=== PATIENT | male | born 1935 | race Caucasian/White ===

== ENCOUNTER 2019-11-06 18:48 | Inpatient (IN) | payer MEDICARE, OTHER ==
[~2019-11-06] VITALS: Ht 172.7 cm; Wt 95.3 kg
--- OUTSIDE RECORDS SUMMARY | 2019-11-06 18:50 | XMS REPORT ---
Author Author [facility] Address Unknown Phone Unavailable Care Team Providers Care Senior Research Fellow Name Role Phone SELENE SCHWARZ Unavailable Unavailable LYNNE ESTRADA Unavailable Unavailable Problems This patient has no known problems. Allergies, Adverse Reactions, Alerts This patient has no known allergies or adverse reactions. Medications This patient has no known medications. Results Test Description Test Time Test Comments Text Results Atomic Results Result Comments TISSUE EXAM 2019-10-04 08:56:00 Surgical Pathology Report Case: [id number] Authorizing Provider: Erasto Schwarz, Collected: 09/28/2019 0810 Ordering Location: [facility] OR Received: 09/28/2019 [facility] Perioperative Services Pathologist: Betito Aldridge MD Specimen: Condy le,Left Knee CONDYLES, LEFT KNEE, ARTHROPLASTY: - DEGENERATIVE CHANGES CONSISTENT WITH OSTEOARTHRITIS Signing Pathologist Direct Phone Line: [phone] signed by Betito Aldridge MD on 10/04/2019 at 8:56 [id number] diagnosis: Primary osteoarthritis of both kneesA. Condyle, left kneeReceived in formalin labeled with the patient's name, accession number and "condyle, left knee" are multiple mixon-yellow trabeculated bone fragments that range from 2.5 to 8.3 cm in greatest dimension. The articular surface is s mooth to finely granular and displays two areas of eburnation that range from 1.0 to 2.0 cm in greatest dimension, as well as multiple peripheral osteophytes that measure up to 1.4 cm in greatest dimension. The cut surface is mixon-yellow, trabeculated and firm with cortical bone ranging from absent to 0.3 cm thick. Medical Educator sections are submitted as A1-A3 following decalcification. PA/pl Performed. POCT-GLUCOSE METER 2019-09-29 11:56:00 POC-GLUCOSE METER (Activehours) (test fmuc=3614) 145 mg/dL 70-110 : TESTED AT [address] [address]: Nurse/Physical Therapist Aide AR=[id number] for Shabnam Frausto POCT-GLUCOSE [id number] 07:31:00* Test Item Value Reference Range Comments POC-GLUCOSE METER (BEAKER) (test yzyz=3918) 143 mg/dL 70-110 : TESTED AT [address] [address]: Nurse/Physical Therapist Aide SW=[id number] for Shabnam Frausto BASIC METABOLIC [id number] 05:54:00* Test Item Value Reference Range Comments SODIUM (BEAKER) (test ifmg=163) 141 meq/L 136-145 POTASSIUM (BEAKER) (test etmd=285) 4.7 meq/L 3.5-5.1 Specimen slightly hemolyzed CHLORIDE (BEAKER) (test esrj=910) 111 meq/L 98-107 CO2 (BEAKER) (test vbgk=397) 22 meq/L 22-29 BLOOD UREA NITROGEN (BEAKER) (test gkpv=116) 28 mg/dL 7-21 CREATININE (BEAKER) (test icdn=228) 1.15 mg/dL 0.57-1.25 Specimen slightly hemolyzed GLUCOSE RANDOM (BEAKER) (test knah=763) 146 mg/dL 70-105 CALCIUM (BEAKER) (test daww=272) 8.8 mg/dL 8.4-10.2 EGFR (BEAKER) (test oefg=3456) 61 mL/min/1.73 sq m ESTIMATED GFR IS NOT ACCURATE CREATININE CLEARANCE IN PREDICTING GLOMERULAR FILTRATION RATE. ESTIMATED GFR IS NOT APPLICABLE FOR DIALYSIS PATIENTS. HEMOGLOBIN AND [id number] 05:52:00* Test Item Value Reference Range Comments HEMOGLOBIN (BEAKER) (test ybmx=158) 8.5 GM/DL 13.7-17.5 HEMATOCRIT (BEAKER) (test ddgx=851) 26.9 % 40.1-51.0 POCT-GLUCOSE [id number] 21:12:00* Test Item Value Reference Range Comments POC-GLUCOSE METER (BEAKER) (test kjio=5757) 153 mg/dL 70-110 : TESTED AT [address] [address]: Nurse/Physical Therapist Aide IL=[id number] for TOYN BLAKE POCT-GLUCOSE [id number] 17:47:00* Test Item Value Reference Range Comments POC-GLUCOSE METER (BEAKER) (test bevz=1006) 218 mg/dL 70-110 : TESTED AT [address] [address]: Nurse/Physical Therapist Aide FK=[id number] for EMILY MCGOWAN POCT-GLUCOSE [id number] 11:21:00* Test Item Value Reference Range Comments POC-GLUCOSE METER (BEAKER) (test syks=2912) 142 mg/dL 70-110 : TESTED AT [address] [address]: Nurse/Physical Therapist Aide BN=[id number] for RAFAEL CARMEN POCT-GLUCOSE [id number] 07:38:00* Test Item Value Reference Range Comments POC-GLUCOSE METER (BEAKER) (test dffg=1288) 88 mg/dL 70-110 : TESTED AT [place] [id number]: Nurse/Physical Therapist Aide EO=[id number] for ADELINA PALM TISSUE [id number] 10:10:00Surgical Pathology Report Case: [id number] Authorizing Provider: Jamarcus Estrada MD Collected: 10/29/2017 1316 Ordering Location: [facility] - Perioperative Received: 10/29/2017 1414 Services Pathologist: Per Pacheco MD Specimen: Stomach STOMACH, SLEEVE GASTRECTOMY- STOMACH- NO DYSPLASIA OR MALIGNANCY IDENTIFIED Signing Pathologist Direct Phone Line: [phone] signed by Per Pacheco MD on 11/02/2017 at 10:10 [id number] obesity. Procedure: laparoscopic longitudinal sleeve gastrectomyStomach The instrument, paperwork, container and cassette all read [id number].Received in formalin labeled with the patient's name (Eliezer), and medical record number.Specimen A: Received in formalin labeled as "stomach" is a 26.5 x 8.0 x 4.0 cm segment of stomach. The serosal surface is olvera-mixon and smooth. There is staple line running along the long axis of the specimen. Opening the stomach reveals a rugae with the usual folding pattern. There is no discrete mass, ulcer or polyp noted. Two employer relations representative sections are submitted in A1 and A2. JF/pl POCT-GLUCOSE METER 2017-10-30 12:03:00* Test Item Value Reference Range Comments POC-GLUCOSE METER (BEAKER) (test okdx=8028) 122 mg/dL 70-110 TESTED AT [facility] [address] [facility] [address] [place], UGI, WITHOUT [id number] 08:55:00Gastrograffin only.Reason for exam:->to evaluate pouch, status post lapascopic sleeve gastrectome/lapacopic bandFINAL REPORT Technique: Limited UGI dated 10/30/2017 History: Evaluate pouch Comparison: None Impression:Total fluoro time is 0.3 minutes. Total number of images is 10. The patient ingested approximately 30 cc of gastr ografin without difficulty. Gastrografin flowed smoothly from the esophagus into the neostomach and into the duodenum. There is no evidence of contrast extravas ation or obstruction. Signed: Ada Botello MDReport Verified Date/Time: 10/30/2017 08:55:08 Reading Location: [facility] Radiology Reading Room Electronica lly signed by: ADA BOTELLO on 10/30/2017 08:55 AM BASIC METABOLIC [id number] 06:52:00* Test Item Value Reference Range Comments SODIUM (BEAKER) (test vysa=787) 141 meq/L 135-148 POTASSIUM (BEAKER) (test iynl=129) 5.1 meq/L 3.5-5.5 CHLORIDE (BEAKER) (test vktk=320) 112 meq/L 98-106 CO2 (BEAKER) (test vrtx=181) 20 meq/L 20-31 BLOOD UREA NITROGEN (BEAKER) (test flak=220) 38 mg/dL 10-26 CREATININE (BEAKER) (test trjl=788) 1.19 mg/dL 0.50-1.20 GLUCOSE RANDOM (BEAKER) (test ehuf=990) 110 mg/dL 70-110 CALCIUM (BEAKER) (test dzbs=563) 9.1 mg/dL 8.5-10.5 EGFR (BEAKER) (test odlu=4228) 59 mL/min/1.73 sq m ESTIMATED GFR IS NOT ACCURATE CREATININE CLEARANCE IN PREDICTING GLOMERULAR FILTRATION RATE. ESTIMATED GFR IS NOT APPLICABLE FOR DIALYSIS PATIENTS. CBC W/PLT COUNT & AUTO [id number] 06:13:00* Test Item Value Reference Range Comments WHITE BLOOD CELL COUNT (BEAKER) (test xdko=351) 10.7 K/ L 4.0-10.0 RED BLOOD CELL COUNT (BEAKER) (test vcxa=325) 3.36 M/ L 4.20-5.80 HEMOGLOBIN (BEAKER) (test snje=638) 11.1 GM/DL 13.0-16.8 HEMATOCRIT (BEAKER) (test izda=092) 33.6 % 40.0-50.0 MEAN CORPUSCULAR VOLUME (BEAKER) (test lutc=428) 100.2 fL 82.0-98.0 MEAN CORPUSCULAR HEMOGLOBIN (BEAKER) (test hfsp=661) 33.1 pg 27.0-33.0 MEAN CORPUSCULAR HEMOGLOBIN CONC (BEAKER) (test taqt=725) 33.0 GM/DL 32.0-36.0 RED CELL DISTRIBUTION WIDTH (BEAKER) (test hhzf=039) 14.9 % 12.0-15.0 PLATELET COUNT (BEAKER) (test izhs=908) 215 K/CU MM 150-430 MEAN PLATELET VOLUME (BEAKER) (test vvsd=553) 7.8 fL 6.5-10.5 NUCLEATED RED BLOOD CELLS (BEAKER) (test whcr=348) 0 /100 WBC 0-0 NEUTROPHILS RELATIVE PERCENT (BEAKER) (test lsnt=066) 74 % LYMPHOCYTES RELATIVE PERCENT (BEAKER) (test ijyx=107) 16 % MONOCYTES RELATIVE PERCENT (BEAKER) (test txqj=720) 9 % EOSINOPHILS RELATIVE PERCENT (BEAKER) (test lcts=623) 1 % BASOPHILS RELATIVE PERCENT (BEAKER) (test krel=122) 0 % NEUTROPHILS ABSOLUTE COUNT (BEAKER) (test iteg=240) 7.90 K/ L 1.80-8.00 LYMPHOCYTES ABSOLUTE COUNT (BEAKER) (test fdjy=925) 1.70 K/ L 1.48-4.50 MONOCYTES ABSOLUTE COUNT (BEAKER) (test iajy=619) 0.90 K/ L 0.00-1.30 EOSINOPHILS ABSOLUTE COUNT (BEAKER) (test xwyk=601) 0.10 K/ L 0.00-0.50 BASOPHILS ABSOLUTE COUNT (BEAKER) (test mmcl=145) 0.00 K/ L 0.00-0.20 POCT-GLUCOSE [id number] 23:38:00* Test Item Value Reference Range Comments POC-GLUCOSE METER (BEAKER) (test rney=2798) 132 mg/dL 70-110 TESTED AT [facility] [address] [facility] [address] POCT-GLUCOSE [id number] 17:37:00* Test Item Value Reference Range Comments POC-GLUCOSE METER (BEAKER) (test vlas=9941) 138 mg/dL 70-110 TESTED AT [facility] [address] [facility] [address] BASIC METABOLIC [id number] 16:02:00* Test Item Value Reference Range Comments SODIUM (BEAKER) (test pqsl=828) 139 meq/L 135-148 POTASSIUM (BEAKER) (test jqmw=567) 4.1 meq/L 3.5-5.5 CHLORIDE (BEAKER) (test krup=304) 104 meq/L 98-106 CO2 (BEAKER) (test ysay=568) 25 meq/L 20-31 BLOOD UREA NITROGEN (BEAKER) (test asgm=346) 48 mg/dL 10-26 CREATININE (BEAKER) (test jjms=189) 1.69 mg/dL 0.50-1.20 GLUCOSE RANDOM (BEAKER) (test eney=345) 143 mg/dL 70-110 CALCIUM (BEAKER) (test wqpf=178) 9.5 mg/dL 8.5-10.5 EGFR (BEAKER) (test vnsr=0308) 39 mL/min/1.73 sq m ESTIMATED GFR IS NOT ACCURATE CREATININE CLEARANCE IN PREDICTING GLOMERULAR FILTRATION RATE. ESTIMATED GFR IS NOT APPLICABLE FOR DIALYSIS PATIENTS. [id number] 16:01:00* Test Item Value Reference Range Comments MAGNESIUM (BEAKER) (test acas=474) 2.4 mg/dL 1.5-3.0 POCT-GLUCOSE [id number] 14:52:00* Test Item Value Reference Range Comments POC-GLUCOSE METER (BEAKER) (test uvcv=3090) 148 mg/dL 70-110 TESTED AT [facility] [address] [facility] [address] POCT-GLUCOSE [id number] 11:31:00* Test Item Value Reference Range Comments POC-GLUCOSE METER (BEAKER) (test zwtt=7534) 122 mg/dL 70-110 TESTED AT [facility] [address] [facility] [address]
[2019-11-06] MEDS ORDERED: LIDOCAINE JELLY 2% 10ML URO-JET ONE (21:06)
[2019-11-06 22:15] LABS: BASOPHILS % 0.2 % (0.0-1.0); EOSINOPHILS # (AUTO) 0.2 (0.0-0.4); EOSINOPHILS % 1.3 % (0.0-6.0); HEMOGLOBIN 10.1 g/dL (14.0-18.0); LYMPHOCYTES # (AUTO) 1.5 (1.0-3.2); LYMPHOCYTES % 10.1 % (18.0-39.1); MEAN CORPUSCULAR HEMOGLOBIN 32.1 pg (28-32); MEAN CORPUSCULAR HGB CONC 32.6 g/dL (31-35); MEAN CORPUSCULAR VOLUME 98.4 fL (81-99); MONOCYTES # (AUTO) 0.9 (0.2-0.8); MONOCYTES % 5.8 % (4.4-11.3); NEUTROPHILS # (AUTO) 12.2 (2.1-6.9); NEUTROPHILS % 82.1 % (38.7-80.0); PLATELET COUNT 229 x10e3/uL (140-360); RED BLOOD COUNT 3.15 x10e6/uL (4.3-5.7); RED CELL DISTRIBUTION WIDTH 14.6 % (11.7-14.4)
[2019-11-06 22:31] LABS: ALBUMIN 3.9 g/dL (3.5-5.0); ALBUMIN/GLOBULIN RATIO 1.2 (0.8-2.0); ANION GAP 13.2 mmol/L (8-16); CALCIUM 10.3 mg/dL (8.4-10.2); CREATININE, SERUM 1.18 mg/dL (0.72-1.25); POTASSIUM 4.2 mmol/L (3.5-5.1)
--- NOTE | 2019-11-06 22:44 | Diagnostic Imaging Report ---
EXAMINATION: CT of the abdomen and pelvis without contrast. TECHNIQUE: Spiral CT images of the abdomen and pelvis were performed from the lung bases to the lesser trochanters. No intravenous contrast was given per renal stone protocol. Coronal and sagittal reformatted images were obtained. COMPARISON: None. CLINICAL HISTORY:Hematuria, suprapubic pain DISCUSSION: ABSENCE OF INTRAVENOUS CONTRAST DECREASES SENSITIVITY FOR DETECTION OF FOCAL LESIONS AND VASCULAR PATHOLOGY. ABDOMEN/PELVIS: LOWER THORAX: Right middle lobe calcified granuloma with pleural scar. Lingular and left lower lobe linear scar. Medial right lower lobe linear scar. Pericardial calcifications likely postinflammatory. HEPATOBILIARY:No focal hepatic lesions. No intrahepatic biliary ductal dilation. The gallbladder is unremarkable. SPLEEN: No splenomegaly or focal splenic lesion. PANCREAS: No focal masses or ductal dilatation. ADRENALS: No adrenal nodules. KIDNEYS/URETERS: Multiple (approximately 15-20) bilateral low-attenuation renal lesions, all of which measure less than 20 Hounsfield units in attenuation. In addition, there are several smaller hyperdense lesions in the left kidney, 40-50 Hounsfield units in density, the largest of which measures 1.6 cm as seen on series 3 image 57. No hydronephrosis. No calculi. PELVIC ORGANS/BLADDER: The urinary bladder is collapsed around a Liao catheter. Air in the nondependent portion. Wall thickening and adjacent perivesicular inflammation PERITONEUM/RETROPERITONEUM: No ascites or pneumoperitoneum. LYMPH NODES: Bilateral external iliac chain lymph nodes are increased in number though not enlarged by CT criteria. Left common iliac lymph node measures 1.1 cm short axis. Similarly, retroperitoneal lymph nodes are increased in number and borderline enlarged by CT criteria. VESSELS: Limited evaluation in the abscence of intravenous contrast. The abdominal aorta is non-aneurysmal. GI TRACT: Postsurgical changes of the proximal stomach related to sleeve gastrectomy. The large bowel is notable for innumerable descending and sigmoid colon diverticula without wall thickening or adjacent inflammatory change. The appendix is not definitively identified. No right lower quadrant inflammation. No small bowel dilatation to suggest obstruction. BONES AND SOFT TISSUES: Multilevel degenerative disc changes and facet arthropathy of the lumbar spine. No osseous destructive lesion. Fat-containing umbilical hernia. IMPRESSION: Liao catheter in place with concentric urinary bladder wall thickening and perivesicular inflammation compatible with cystitis. Correlate with urinalysis. No renal or ureteral calculi. No hydronephrosis. Increased number of borderline enlarged pelvic and retroperitoneal lymph nodes is of uncertain etiology. Differential diagnosis includes reactive changes, metastatic disease, or lymphoproliferative disorder. Short-term follow-up CT of the abdomen and pelvis (3 months) is suggested to assess for stability or resolution. Multiple bilateral renal cysts with left-sided hyperdense lesions, likely representing proteinaceous or hemorrhagic cysts. Definitive characterization with nonemergent MRI of the abdomen with and without contrast (renal mass protocol) is suggested. Atherosclerotic vascular disease. Large bowel diverticulosis without evidence of diverticulitis. Signed by: Dr. Erasto Moses M.D. on 11/06/2019 10:42 PM
[2019-11-06] MEDS ORDERED: ALLOPURINOL300 MG PO (22:55)
[2019-11-06] MEDS ORDERED: NORCO 10-325 T1 EACH PO (22:55)
[2019-11-06] MEDS ORDERED: AMLODIPINE BESY10 MG PO (22:55)
[2019-11-06] MEDS ORDERED: FLUTICASONE PRO16 GM INH (22:55)
[2019-11-06] MEDS ORDERED: PIOGLITAZONE HC30 MG PO (22:55)
[2019-11-06] MEDS ORDERED: LISINOPRIL5 MG PO (22:55)
[2019-11-06] MEDS ORDERED: FUROSEMIDE20 MG PO (22:55)
[2019-11-06] MEDS ORDERED: PRAVASTATIN SOD40 MG PO (22:55)
[2019-11-06] MEDS ORDERED: ALPRAZOLAM0.5 MG PO (22:55)
[2019-11-07] VITALS (10 sets, daily range): BP systolic 104–126; BP diastolic 46–84
[2019-11-07] MEDS: CEFTRIAXONE SOD 1 GM/NS 50 ML 50 ML IV SCH ×3 (00:01→23:01)
[2019-11-07] MEDS ORDERED: CEFTRIAXONE SOD 1 GM VIAL ONE (00:11)
[2019-11-07] MEDS ORDERED: DICYCLOMINE HCL 20 MG/2 ML VIAL IM ONE (00:11)
--- NOTE | 2019-11-07 00:23 | NUR ---
PT ARRIVED BY STRETCHER TO ROOM 105, PT IS AAOX3, RR EVEN AND NON-LABORED, ON ROOM AIR. PT RECEIVING CBI BENITO INTACT AND DRAINING PICHARDO URINE. PT ORIENTED TO HOSPITAL ROOM, CALL LIGHT AND BED CONTROLS. LEFT PT LAYING SEMI FOWLERS IN BED, BED IN LOW LOCKED POSITION, SIDE RAILS UPX2, CALL LIGHT AND PHONE WITHIN REACH.
[2019-11-07 01:58] LABS: ANION GAP 13.4 mmol/L (8-16); BLOOD UREA NITROGEN 21 mg/dL (7-26); BUN/CREATININE RATIO 20 (6-25); CALCIUM 9.8 mg/dL (8.4-10.2); CARBON DIOXIDE 23 mmol/L (22-29); CHLORIDE 108 mmol/L (98-107); CREATININE, SERUM 1.03 mg/dL (0.72-1.25); EST GLOMERULAR FILTRATION RATE > 60 ML/MIN (60-); GLUCOSE 131 mg/dL (74-118); POTASSIUM 4.4 mmol/L (3.5-5.1); SODIUM 140 mmol/L (136-145)
[2019-11-07] MEDS: HYDROCODONE/APAP 10MG-325MG TAB PO PRN (03:13)
--- NOTE | 2019-11-07 06:23 | NUR ---
SPOKE WITH MD ZAMAN COVERING FOR MD TAI CONCERNING PT REPORTS OF SPASMS IN (L) KNEE. NEW ORDERS RECEIVED.
[2019-11-07] MEDS: LIDOCAINE 4% PATCH TP SCH (06:48)
--- NOTE | 2019-11-07 06:58 | NUR ---
Received patient lying in bed with eyes open. Respiration even and unlabored without SOB. Call light in reach.
[2019-11-07 07:22] LABS: BLOOD UREA NITROGEN 19 mg/dL (7-26); BUN/CREATININE RATIO 18 (6-25); CALCIUM 9.4 mg/dL (8.4-10.2); CARBON DIOXIDE 26 mmol/L (22-29); CHLORIDE 107 mmol/L (98-107); CREATININE, SERUM 1.06 mg/dL (0.72-1.25); EST GLOMERULAR FILTRATION RATE > 60 ML/MIN (60-); GLUCOSE 147 mg/dL (74-118); SODIUM 138 mmol/L (136-145)
[2019-11-07] MEDS: FUROSEMIDE 20 MG TAB PO SCH ×2 (08:59→17:00)
[2019-11-07] MEDS: AMLODIPINE BESYLATE 10 MG TAB PO SCH (08:59)
[2019-11-07] MEDS: ALLOPURINOL 300 MG TAB PO SCH (09:00)
[2019-11-07] MEDS: PIOGLITAZONE HCL 15 MG TAB PO SCH (09:00)
[2019-11-07] MEDS: LISINOPRIL 2.5 MG TAB PO SCH (09:00)
[2019-11-07] MEDS ORDERED: DEXTROSE 50% SYRINGE 50 ML IV PRN (10:15)
--- NOTE | 2019-11-07 11:37 | NUR ---
medicine [id number] history and physical coverage dr feliciano will be back tomorrow
[2019-11-07] MEDS: INSULIN REGULAR, HUMAN 100 UNIT/1 ML 3ML VIAL SQ SCH ×3 (12:48→20:05)
[2019-11-07 15:09] LABS: CLARITY,URINE SL CLOUDY (CLEAR); COLOR,URINE OTHER (YELLOW); LEUKOCYTE ESTERASE ,URINE TRACE (NEGATIVE); NITRITE,URINE NEGATIVE (NEGATIVE)
[2019-11-07 15:10] LABS: BILIRUBIN,URINE NEGATIVE (NEGATIVE); KETONES,URINE NEGATIVE (NEGATIVE); PROTEIN,URINE DIPSTICK 2+ (NEGATIVE); URINE UROBILINOGEN 0.2 mg/dL (0.2 - 1)
[2019-11-07 15:21] LABS: BACTERIA,URINE MODERATE /HPF; RBC,URINE >50 /HPF (0-5)
--- NOTE | 2019-11-07 17:36 | History and Physical ---
PRIMARY CARE DOCTOR: Dr. Rohini Walker with [facility]. This is coverage for Dr. Harry Stock. HISTORY OF PRESENT ILLNESS: Mr. Martins is a pleasant 84-year-old gentleman with blood in urine. The patient with history of prostate cancer 12 years previously. He had 42 sessions of radiation therapy. He even had 1-2 Lupron shots before he was deemed reasonable for followup. The patient has been doing good with or without sequela of significant bladder nor prostate problems, he says. He is under surveillance with PSA, which has been hanging around 3-4 only. On September 28, 2019, the patient underwent left knee surgery. His aspirin was boosted from 81 mg per day to 325 mg per day. The patient denies taking other blood thinners. The patient gives 2 days of hematuria. The patient has not had this happen to him before. He got scared, so he came to emergency room. The patient had gross clots that were having difficulty passing. It was recommended for hospitalization. PAST MEDICAL HISTORY: Hypertension, hyperlipidemia, diabetes, prostate cancer 12 years ago, status post 42 sessions of radiation therapy, and 1-2 Lupron shots. He had left knee surgery on September 28, 2019. Arthritis. MEDICATIONS: Medication list reviewed per the chart and record. ALLERGIES: NO KNOWN DRUG ALLERGIES. SOCIAL HISTORY: No smoking. No drinking. No drugs. He lives with his and they are both independent. He is using a cane or walker recently after his knee surgery, but he feels he is recovering well. FAMILY HISTORY: Noncontributory. REVIEW OF SYSTEMS: GENERAL: No weight changes. OPHTHALMOLOGIC: No floaters. ENT: No mouth ulcers. ENDOCRINE: No thyroid disease. PULMONARY: No asthma. CARDIAC: No heart attack. GI: No diarrhea. : No blood in urine. NEUROLOGIC: No seizures. DERMATOLOGIC: No rashes. PSYCHIATRIC: No depression. OBJECTIVE: VITAL SIGNS: Afebrile, vital signs noted, reviewed per the chart and record. GENERAL: In no acute distress. Alert and calm, although he does look tired. HEENT: Normocephalic, atraumatic. NECK: Supple. Throat midline. LUNGS: Bilateral air entry, clear. CARDIOVASCULAR: S1, S2. No murmurs, rubs, or gallops. ABDOMEN: Soft, nontender. Mildly obese. EXTREMITIES: No clubbing. No cyanosis. There is 1+ leg edema. INTEGUMENT: No rash. No purpura. LABORATORY DATA: 1.06 creatinine, 26 bicarbonate, 15 white count, 31 hematocrit, [address]. [address]dominal and pelvic CT with renal cyst/nodules up to 1.6 cm. Bladder wall thickening. Lymph nodes up to 1.1, iliac lymph node. Old changes from gastric sleeve. Diverticulosis without diverticulitis. IMPRESSION AND PLAN: 1. Hematuria, gross line suspect traumatic due to either Liao insertion and possibly due to superimposed urinary tract infection and old radiation exposure. 2. History of prostate cancer, status post radiation and some short Lupron dosing. 3. Postop state, status post September 28, 2019, left knee surgery, on aspirin. 4. Hypertension. 5. Hyperlipidemia. 6. Diabetes. 7. History of GI surgery, sleeve apparent. 8. Multiple renal lesions/cysts. 9. Diverticulosis without diverticulitis. 10. Pulmonary scarring. 11. Bladder wall thickening, presumed due to above urinary tract infection as described. 12. Admit. 13. Give irrigation. 14. Follow up blood output. 15. consult. 16. Aspirin on temporary held. We will discuss with when patient is okay to go back on medicines. We will follow up closely. MD JOSUE De Los Santos/JOSEL /[id number]
--- NOTE | 2019-11-07 19:04 | NUR ---
Report given to overnight babysitter. Respiration even and unlabored without SOB. Liao catheter in placed, intact, with CBI. Call light in reach.
[2019-11-07] MEDS: FLUTICASONE PROPIONATE NASAL SPRAY NS SCH (21:00)
[2019-11-07] MEDS: PRAVASTATIN 20 MG TAB PO SCH (21:29)
[2019-11-07] MEDS: ALPRAZOLAM 0.5 MG TAB PO SCH (21:29)
[2019-11-07] MEDS ORDERED: SODIUM CHLORIDE 0.9% 250ML 250 ML ONE (22:51)
--- NOTE | 2019-11-07 23:46 | Consultation ---
DATE OF CONSULTATION: 11/07/2019 Urology Consultation REASON FOR CONSULTATION: Gross hematuria. HISTORY OF PRESENT ILLNESS: Travon Martins is an 84-year-old man with a history of prostate cancer. The patient received 42 treatments of external beam radiotherapy with 2 shots of Lupron as neoadjuvant hormone therapy. This occurred over 15 years ago. The patient denies previous hematuria and dysuria. Denies any previous urolithiasis except that there is a possibility that he may have passed a kidney stone that he never retrieved about more than a decade ago. The patient had urinary retention and was unable to void, reported in the emergency room where without discussing with a urologist, a 22-Martiniquais Liao catheter three way with a 30 mL balloon was then placed and the patient was begun on continuous bladder irrigation. No urine culture was done from the emergency room. Urinalysis was also not performed by the emergency room. Currently, the patient's urine is clearing up. The patient has been on aspirin 325 mg as a result of his postoperative therapy following his left total knee arthroplasty. PAST MEDICAL AND SURGICAL HISTORY: 1. Status post left total knee arthroplasty. 2. Status post tonsillectomy. 3. Status post gastric sleeve with resultant weight loss of over 70 pounds. 4. Status post appendectomy. 5. Hypertension. 6. Hypercholesterolemia. 7. Diabetes mellitus. SOCIAL HISTORY: The patient denies smoking or ethanol drug use. 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 FAMILY HISTORY: Noncontributory to the active urological problems. CURRENT MEDICATIONS: Please refer the MAR. ALLERGIES: NONE KNOWN. REVIEW OF SYSTEMS: Consistent with above History of Present Illness, Past Medical History, otherwise negative for all systems. PHYSICAL EXAMINATION: GENERAL: Very pleasant 84-year-old male, lying in bed, in no apparent distress. VITAL SIGNS: He is currently afebrile. Vital signs are currently stable. ABDOMEN: Soft, nondistended, nontender without costovertebral angle tenderness. Kidneys not palpable, without hepatosplenomegaly. The patient is obese. GENITOURINARY: Testes descended bilaterally. They are bilaterally atrophic. The patient has a normal circumcised male phallus with normal meatus without any lesion. There is a 22-Martiniquais Liao catheter in place with a 30 mL balloon with continuous bladder irrigation going almost clear urine out that is barely pink. For the remaining physical examination systems, please refer to the Admission History and Physical and the ERT sheet. LABORATORY STUDIES: CT scan of the abdomen and pelvis revealed bilateral renal cysts, some of them are proteinaceous or hemorrhagic, specifically on the left hand side, there are signs of cystitis and there is some degree of lymphadenopathy. White blood cell count is 14,890, hemoglobin 10.1, and platelets 222,000. The patient's creatinine is normal at 1.06. Urinalysis significant for greater than 50 rbc's, 6-10 wbc's. Urine culture is pending. Unfortunately, the patient received IV ceftriaxone last night prior to any urine culture and urinalysis being collected. ASSESSMENT: 1. Prostate cancer, status post radiotherapy with neoadjuvant hormone therapy. 2. Possible history of urolithiasis. 3. Urinary retention. 4. Liao catheter in situ. 5. Obesity. 6. Atrophic testes. 7. Gross hematuria. 8. Bilateral renal cysts. 9. Left renal masses, consistent with possible proteinaceous or hemorrhagic cysts. 10. Leukocytosis. 11. Anemia. 12. Possible urinary tract infection. PLAN: 1. It is unfortunate that urine culture was not sent prior to the patient receiving any antibiotics. 2. It is unfortunate a urologist was not consulted prior to placing a continuous flow catheter with a 30 mL balloon in the patient who has never had a TURP. 3. We will await urine culture and sensitivity. 4. I will continue to hold the patient's aspirin. 5. The patient's need cystoscopy and retrograde ureteropyelography. We will wait until we have final urine culture and sensitivity prior to pursuing the procedure. Thank you much for involving us in care of your patient. We will be able to follow him along with you as well as an outpatient. Niels Vazquez MD [place]/JOSEL /[phone]
[2019-11-08] VITALS (7 sets, daily range): BP systolic 91–119; BP diastolic 50–64
[2019-11-08 05:41] LABS: BASOPHILS % 0.3 % (0.0-1.0); EOSINOPHILS # (AUTO) 0.6 (0.0-0.4); EOSINOPHILS % 4.7 % (0.0-6.0); HEMATOCRIT 27.1 % (38.2-49.6); HEMOGLOBIN 8.6 g/dL (14.0-18.0); LYMPHOCYTES # (AUTO) 3.8 (1.0-3.2); LYMPHOCYTES % 28.6 % (18.0-39.1); MEAN CORPUSCULAR HEMOGLOBIN 31.7 pg (28-32); MEAN CORPUSCULAR HGB CONC 31.7 g/dL (31-35); MONOCYTES # (AUTO) 1.4 (0.2-0.8); MONOCYTES % 10.5 % (4.4-11.3); NEUTROPHILS # (AUTO) 7.4 (2.1-6.9); NEUTROPHILS % 55.5 % (38.7-80.0); PLATELET COUNT 204 x10e3/uL (140-360); RED BLOOD COUNT 2.71 x10e6/uL (4.3-5.7); RED CELL DISTRIBUTION WIDTH 14.7 % (11.7-14.4)
[2019-11-08 05:56] LABS: INR 0.98; PROTHROMBIN TIME 13.6 seconds (11.9-14.5)
[2019-11-08 05:57] LABS: PARTIAL THROMBOPLASTIN TIME 33.9 seconds (23.8-35.5)
[2019-11-08 06:00] LABS: ALBUMIN 3.2 g/dL (3.5-5.0); ALBUMIN/GLOBULIN RATIO 1.1 (0.8-2.0); ANION GAP 10.7 mmol/L (8-16); CALCIUM 9.6 mg/dL (8.4-10.2); CREATININE, SERUM 1.17 mg/dL (0.72-1.25); MAGNESIUM 2.1 MG/DL (1.3-2.1); PHOSPHORUS 3.3 MG/DL (2.3-4.7); POTASSIUM 4.7 mmol/L (3.5-5.1)
--- NOTE | 2019-11-08 06:48 | NUR ---
Received patient lying in bed with eyes closed. Respiration even and unlabored without SOB. Call light in reach. Urinary catheter in placed, intact on CBI.
[2019-11-08] MEDS: INSULIN REGULAR, HUMAN 100 UNIT/1 ML 3ML VIAL SQ SCH ×4 (07:30→21:00)
[2019-11-08] MEDS: LISINOPRIL 2.5 MG TAB PO SCH (08:42)
[2019-11-08] MEDS: ALLOPURINOL 300 MG TAB PO SCH (08:42)
[2019-11-08] MEDS: FUROSEMIDE 20 MG TAB PO SCH ×2 (08:42→16:23)
[2019-11-08] MEDS: LIDOCAINE 4% PATCH TP SCH (08:42)
[2019-11-08] MEDS: AMLODIPINE BESYLATE 10 MG TAB PO SCH (08:42)
[2019-11-08] MEDS: PIOGLITAZONE HCL 15 MG TAB PO SCH (08:42)
--- NOTE | 2019-11-08 14:05 | NUR ---
Visit made by the Spiritual Care Department Pastoral Visitor, Jewell Oneill. PV provided pastoral presence, hospitality, and supportive listening. Pastoral Visitor informed pt/family of the scope of Restrictive Preparation Operator Services and availability. ALBINO DALTON Bindery Chief Spiritual Care Department O: [phone]
--- NOTE | 2019-11-08 19:05 | NUR ---
Report given to environmental emergencies assistant. Respiration even and unlabored without SOB. Call light in reach.
--- NOTE | 2019-11-08 19:42 | Progress Note ---
DATE: 11/08/2019 SR. PAYROLL MANAGER: Dr. Niels Vazquez with Urology. CHIEF COMPLAINT: Hematuria. SUBJECTIVE: The patient was seen sitting on the side of the bed, Liao in place draining clear urine. Denies any pelvic pain, hematuria, nausea, or vomiting. He is planned to have a cystoscopy tomorrow per the patient. PHYSICAL EXAMINATION: VITAL SIGNS: Temperature 96.3, pulse is 72, respirations 16, blood pressure 98/52, and pulse ox is 95% on room air. GENERAL: In no acute distress. HEENT: Normocephalic and atraumatic. NECK: Supple. CARDIOVASCULAR: Regular rate and rhythm. LUNGS: Clear to auscultation. ABDOMEN: Soft and nontender. : Liao in place, irrigating. NEURO: Alert, awake, and oriented x3. MUSCULOSKELETAL: Moves all extremities. SKIN: Dry. LABORATORY DATA: WBC 13.39, hemoglobin 8.6, hematocrit 27.1, and platelet is 204. Sodium 136, potassium 4.7, creatinine 1.17, BUN is 26, and glucose 106. AST and ALT 13. PT 13.6, INR 0.98, and APTT 33.9. UA is urine slightly cloudy with trace leukocyte esterase, wbc's, and moderate bacteria. Urine culture is negative so far. IMPRESSION: 1. Hematuria. Liao catheter placed and irrigated per Urology. Cystoscopy is planned for tomorrow. 2. History of prostate cancer, status post radiation and Lupron. We will defer to Urology. 3. Hypertension. Resume home medication. 4. Hyperlipidemia. On statin. 5. Diabetes. Sliding scale insulin coverage. 6. History of diverticulosis without diverticulitis. No abdominal pain. 7. Leukocytosis. Likely due to #1. Resume Rocephin for possible urinary tract infection or interstitial cystitis, and monitor trend. 8. Deep vein thrombosis prophylaxis. SCDs, pending procedure tomorrow. PLAN: For cystoscopy per Urology tomorrow. Dictated by PAUL Ortega Rick Stock MD MY/MODL /[id number]
[2019-11-08] MEDS: FLUTICASONE PROPIONATE NASAL SPRAY NS SCH (21:00)
[2019-11-08] MEDS: ALPRAZOLAM 0.5 MG TAB PO SCH (21:20)
[2019-11-08] MEDS: PRAVASTATIN 20 MG TAB PO SCH (21:20)
[2019-11-09] VITALS (8 sets, daily range): BP systolic 92–130; BP diastolic 49–60
[2019-11-09] MEDS: INSULIN REGULAR, HUMAN 100 UNIT/1 ML 3ML VIAL SQ SCH ×4 (07:30→21:00)
[2019-11-09] MEDS: LIDOCAINE 4% PATCH TP SCH (09:00)
[2019-11-09] MEDS: ALLOPURINOL 300 MG TAB PO SCH (09:00)
[2019-11-09] MEDS: FUROSEMIDE 20 MG TAB PO SCH ×2 (09:00→17:00)
[2019-11-09] MEDS: LISINOPRIL 2.5 MG TAB PO SCH (09:00)
[2019-11-09] MEDS: AMLODIPINE BESYLATE 10 MG TAB PO SCH (09:00)
[2019-11-09] MEDS: PIOGLITAZONE HCL 15 MG TAB PO SCH (09:00)
[2019-11-09] MEDS ORDERED: IOPAMIDOL 300MG/ML 50ML INFUS..BTL IV ONE (12:55)
[2019-11-09] MEDS ORDERED: B&O 60MG R/S 60 MG SUPP PR ONE (12:55)
--- NOTE | 2019-11-09 12:58 | NUR ---
PT WHEELED OFF UNIT VIA BED FOR SURGERY, CBI IN PROGRESS, NO CHANGE IN CONDITION
[2019-11-09] MEDS ORDERED: ACETAMINOPHEN 1000 MG/100 ML IV ONE (14:29)
[2019-11-09] MEDS ORDERED: ONDANSETRON HCL INJ 2MG/ML 2ML 2 MG/ML VIAL ONE (14:29)
[2019-11-09] MEDS ORDERED: LIDOCAINE HCL 2% LOCAL INJ 5 ML SDV VIAL INJ ONE (14:29)
[2019-11-09] MEDS ORDERED: PROPOFOL IV EMULSION 10 MG/ML 20 ML VIAL ONE (14:29)
[2019-11-09] MEDS ORDERED: DEXAMETHASONE SOD PHOS INJ 4 MG/ML VIAL ONE (14:29)
[2019-11-09] MEDS ORDERED: SEVOFLURANE INHAL SOLN 250 ML PEN BTL ONE (14:29)
[2019-11-09] MEDS ORDERED: FENTANYL CITRATE/PF 100MCG/2 ML INJ ONE (15:34)
--- NOTE | 2019-11-09 18:23 | Progress Note ---
DATE: 11/09/2019 COMPLIANCE AIDE: Dr. Niels Vazquez with Urology. CHIEF COMPLAINT: Hematuria. SUBJECTIVE: The patient is status post cystoscopy this afternoon. Liao discontinued, denies any hematuria post cystoscopy, mild pelvic tenderness. He denies any chest pain, nausea, or vomiting. Discussed plan with at the bedside. PHYSICAL EXAMINATION: VITAL SIGNS: Temperature 96.6, pulse of 81, respirations 18, blood pressure 130/60, and pulse ox is 98% on room air. GENERAL: In no acute distress. HEENT: Normocephalic and atraumatic. NECK: Supple. CARDIOVASCULAR: Regular rate and rhythm. LUNGS: Clear to auscultation. ABDOMEN: Soft and nontender. : Mild pelvic tenderness. Liao discontinued. NEUROLOGIC: Alert, awake, and oriented x3. MUSCULOSKELETAL: Moves all extremities. SKIN: Dry. IMPRESSION: 1. Hematuria. Status post cystoscopy earlier per Urology. 2. History of prostate cancer, status post radiation and Lupron. On remission. 3. Hypertension. Resume home medications. 4. High cholesterol. On statin. 5. Diabetes. Sliding scale insulin coverage. 6. History of diverticulosis without diverticulitis. No diarrhea. 7. Leukocytosis. Likely due to hematuria and urinary tract infection. We will continue on Rocephin for cystitis. 8. Deep vein thrombosis prophylaxis. SCDs pending due to urological procedure today. PLAN: To continue antibiotics and monitor urine output. Dictated by PAUL Ortega Rick Stock MD MY/MODL /[id number]
[2019-11-09] MEDS: FLUTICASONE PROPIONATE NASAL SPRAY NS SCH (21:00)
[2019-11-09] MEDS: PRAVASTATIN 20 MG TAB PO SCH (21:35)
[2019-11-09] MEDS: ALPRAZOLAM 0.5 MG TAB PO SCH (21:35)
--- NOTE | 2019-11-09 21:35 | NUR ---
PATIENT RESTING IN BED IN STABLE CONDITION AOX3, NO SIGNS OF DISTRESS NOTED. PATIENT VOICES NO PAIN AT THIS TIME AND IS AWARE OF SERIAL URINE AND USING URINAL INSTRUCTED. BED IS IN LOWEST POSITION, BOTH SIDE RAILS ARE UP, CALL LIGHT IS WITHIN EASY REACH, WILL CONTINUE TO MONITOR.
[2019-11-09] MEDS: CEFTRIAXONE SOD 1 GM/NS 50 ML 50 ML IV SCH (22:40)
[2019-11-10] VITALS: BP 112/56
[2019-11-10 04:00] VITALS: BP 125/55
[2019-11-10] MEDS: HYDROCODONE/APAP 10MG-325MG TAB PO PRN ×2 (04:54→11:52)
[2019-11-10] MEDS: INSULIN REGULAR, HUMAN 100 UNIT/1 ML 3ML VIAL SQ SCH (07:50)
[2019-11-10 08:00] VITALS: BP 139/60
[2019-11-10 08:50] VITALS: BP 139/60
[2019-11-10] MEDS: LISINOPRIL 2.5 MG TAB PO SCH (08:50)
[2019-11-10] MEDS: PIOGLITAZONE HCL 15 MG TAB PO SCH (08:50)
[2019-11-10] MEDS: FUROSEMIDE 20 MG TAB PO SCH (08:50)
[2019-11-10] MEDS: AMLODIPINE BESYLATE 10 MG TAB PO SCH (08:50)
[2019-11-10] MEDS: ALLOPURINOL 300 MG TAB PO SCH (08:50)
[2019-11-10] MEDS: LIDOCAINE 4% PATCH TP SCH (09:00)
[2019-11-10 12:16] VITALS: BP 113/52
[2019-11-10 13:59] LABS: BASOPHILS % 0.3 % (0.0-1.0); EOSINOPHILS % 0.3 % (0.0-6.0); HEMATOCRIT 26.9 % (38.2-49.6); HEMOGLOBIN 8.6 g/dL (14.0-18.0); LYMPHOCYTES # (AUTO) 3.3 (1.0-3.2); LYMPHOCYTES % 21.5 % (18.0-39.1); MEAN CORPUSCULAR HEMOGLOBIN 32.3 pg (28-32); MEAN CORPUSCULAR VOLUME 101.1 fL (81-99); MONOCYTES # (AUTO) 1.7 (0.2-0.8); NEUTROPHILS # (AUTO) 10.2 (2.1-6.9); NEUTROPHILS % 66.4 % (38.7-80.0); PLATELET COUNT 267 x10e3/uL (140-360); RED BLOOD COUNT 2.66 x10e6/uL (4.3-5.7); RED CELL DISTRIBUTION WIDTH 14.6 % (11.7-14.4)
[2019-11-10 14:16] LABS: ANION GAP 12.7 mmol/L (8-16); CALCIUM 9.9 mg/dL (8.4-10.2); CREATININE, SERUM 1.98 mg/dL (0.72-1.25); POTASSIUM 4.7 mmol/L (3.5-5.1)
[2019-11-10] MEDS ORDERED: CEFUROXIME250 MG PO (14:33)
--- NOTE | 2019-11-10 15:03 | NUR ---
Patient discharged home, prescription and discharge instruction given, IV line removed with tip intact, no ss of infiltration noted, denies any pain, no distress noted, at bed side, transported via to [facility]
--- NOTE | 2019-11-11 13:38 | Discharge Summary ---
PRIMARY CARE PHYSICIAN: Dr. Rohini Walker at [facility]. FINAL DISCHARGE DIAGNOSES: 1. Hematuria. 2. History of prostate cancer. 3. Hypertension. 4. High cholesterol. 5. Diabetes. 6. Diverticulosis. 7. Leukocytosis due to urinary tract infection. CONSULTANTS: Dr. Vazquez with Urology. PROCEDURES: He underwent cystoscopy. HISTORY: Per HPI. HOSPITAL COURSE: This is an 84-year-old male with past medical history of hypertension, high cholesterol, diabetes, diverticulosis, prostate cancer, status post radiation and Lupron treatment, on remission, presented with hematuria. A Liao catheter was placed, started on IV antibiotics, and Urology was consulted. He underwent cystoscopy, which showed inflammation of the bladder, likely due to UTI. Recommended Ceftin, antibiotics to complete UTI treatment, and follow up as outpatient for further workup/follow-up. He remains afebrile. Mild pelvic and right lower flank pain, but states is much improved. We will discharge home to follow up with his PCP and Urology. PHYSICAL EXAMINATION: VITAL SIGNS: Temperature 97.5, pulse is 72, respirations 18, blood pressure 113/52, pulse ox is 97% on room air. GENERAL: No acute distress. HEENT: Normocephalic, atraumatic. NECK: Supple. CARDIOVASCULAR: Regular rate and rhythm. LUNGS: Clear to auscultation. ABDOMEN: Soft and nontender. : Mild pelvic tenderness. NEUROLOGIC: Alert, awake, oriented x3. MUSCULOSKELETAL: Moves all extremities. SKIN: Dry. CONDITION AT DISCHARGE: Improved and stable. DISCHARGE MEDICATIONS: Please see medication reconciliation list. FOLLOWUP: Follow up with PCP and urologist in 1 week. TIME SPENT: Total discharge time is 33 minutes. Dictated by PAUL Ortega Rick Stock MD MY/MODL /[id number] cc: Dr. Rohini Walker [facility]
--- NOTE | 2019-12-04 19:21 | Operative Report ---
DATE OF PROCEDURE: 11/09/2019 SURGEON: Niels Vazquez MD PREOPERATIVE DIAGNOSIS: Hematuria. POSTOPERATIVE DIAGNOSIS: Hematuria. OPERATION PERFORMED: 1. Cystourethroscopy with bilateral ureteral catheterization and retrograde ureteropyelography. 2. Interpretation of retrograde ureteropyelography. 3. Supervision of fluoroscopy, no radiologist present. ANESTHESIA: General. COMPLICATIONS: None. CLINICAL SUMMARY: Travon Fernández is an 84-year-old man with prostate cancer status post radiotherapy. He had hematuria. He is brought for evaluation. He is aware of the risks of bleeding, infection, injury to adjacent structures, need for additional procedures, and elected to proceed. OPERATIVE PROCEDURE IN DETAIL: Informed consent was verified. Travon Martins was properly identified, taken to the operating room, and placed on the cystoscopy table in supine position. Anesthesia was uneventfully begun. The patient was then carefully and gently repositioned in dorsal lithotomy position with all pressure points well padded. His genitalia were prepared and draped in usual sterile fashion. The cystoscope sheath with the visual obturator in place was atraumatically inserted in the patient's urethra, it was guided down the normal distal urethra. 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 No suspicious mucosal lesions were identified. There were no stones and there were no tumors. An 8-English catheter was used to cannulate each ureter and retrograde ureteropyelograms were performed. Interpretation of retrograde ureteropyelography contrast was instilled in retrograde fashion bilaterally. There were no tumors, no stones, and no diverticula. Unobstructed drainage was observed bilaterally fluoroscopically. The right kidney appeared malrotated. The patient's bladder was drained and cystoscope was withdrawn. A belladonna and opium suppository were placed revealing a large smooth prostate, nonfunctional without any obvious nodule, but diffusely firm. The patient was then uneventfully reversed from anesthesia and taken to recovery room in stable condition. There were no complications to the procedure. He tolerated the procedure well. I recommend to the patient ongoing urological followup and eventual followup cystoscopy. Niels MD DARLENE Vazquez/AKOSUA /[id number]
== END 2019-11-10 14:53 | disposition home or self-care (01) | DRG 700 ==
LOC: ER 18:48 → ERHOLD 23:33 → MED/SURG 11-07 00:24 → OBSVTOIN 11-07 16:46
PROVIDERS: ADMIT Internal Medicine; ATTEND Internal Medicine
PROC: BT141ZZ Fluoroscopy of Kidneys, Ureters and Bladder using Low Osmolar Contrast (ICD-10-PCS; principal; 2019-11-09 13:00)
DX: N30.41 Irradiation cystitis with hematuria (principal); E78.5 Hyperlipidemia, unspecified; K57.90 Diverticulosis of intestine, part unspecified, without perforation or abscess without bleeding; D64.9 Anemia, unspecified; N28.89 Other specified disorders of kidney and ureter; Z85.46 Personal history of malignant neoplasm of prostate; R31.0 Gross hematuria; M19.90 Unspecified osteoarthritis, unspecified site; Z98.890 Other specified postprocedural states; Y84.2 Radiological procedure and radiotherapy as the cause of abnormal reaction of the patient, or of later complication, without mention of misadventure at the time of the procedure; I10 Essential (primary) hypertension; E11.9 Type 2 diabetes mellitus without complications; Z98.84 Bariatric surgery status; N28.1 Cyst of kidney, acquired; Z96.652 Presence of left artificial knee joint; N20.9 Urinary calculus, unspecified; R33.9 Retention of urine, unspecified; E66.9 Obesity, unspecified; N50.0 Atrophy of testis; Z68.31 Body mass index [BMI] 31.0-31.9, adult
CPT/HCPCS: 36415; 51703; 74176; 74420; 80048; 80053; 81001; 82948; 83735; 84100; 85025; 85610; 85730; 87086; 93005; 94660; 97139; 99284; C1758; G0378; J0500; J0696; J1100; J1817; J2001; J2405; J3010; J7050